=== PATIENT | male | born 1945 | race Caucasian/White ===

== ENCOUNTER 2019-09-15 10:00 | Outpatient (RCR) | payer OTHER | END 2019-10-02 | disposition still patient (30) | LOC: OT | DX: Z98.890 Other specified postprocedural states (principal) ==

== ENCOUNTER 2021-05-20 21:15 | Emergency (ER) | payer MEDICARE ==
[2021-05-20] MEDS ORDERED: CEPHALEXIN500 M1 PO (22:15)
[2021-05-20 22:23] VITALS: BP 135/84
== END 2021-05-20 22:23 | disposition home or self-care (01) ==
LOC: ED 21:15
DX: S60.451A Superficial foreign body of left index finger, initial encounter (principal); W45.8XXA Other foreign body or object entering through skin, initial encounter
CPT/HCPCS: 90714

== ENCOUNTER → 2022-10-26 | Outpatient (CLI) | payer MEDICARE ==
[~2022-10-26] MED LIST: CEPHALEXIN500 M1 PO
== END ==
LOC: RAD 15:27
DX: R50.9 Fever, unspecified (principal)

== ENCOUNTER 2024-04-27 17:28 | Inpatient (IN) | payer MEDICARE ==
[~2024-04-27] VITALS: Ht 172.7 cm; Wt 64.4 kg
--- NOTE | 2024-05-05 12:58 | NUR ---
PATIENT ARRIVED VIA TRANSPORTATION SERVICE AT 1230. PT WAS ASSISTED INTO CHAIR WITH 2 PERSON ASSIST AND WAS ABLE TO PIVOT TRANSFER WITH USE OF GAIT BELT. PT ALERT AND ORIENTED AT THIS TIME. LUCIO AT BEDSIDE UPON PATIENT ARRIVAL. PATIENT DENIES ANY PAIN AT THIS TIME.
[2024-05-05] MEDS ORDERED: NEURONTIN400 M1 PO (12:59)
[2024-05-05] MEDS ORDERED: FLOMAX0.4 MG PO (13:00)
[2024-05-05] MEDS ORDERED: DESYREL50 MG PO (13:01)
[2024-05-05] MEDS ORDERED: ARICEPT10 M1 PO (13:02)
[2024-05-05] MEDS ORDERED: OMEGA 3 1,0001 EACH PO (13:03)
[2024-05-05] MEDS ORDERED: PROZAC20 M1 PO (13:05)
[2024-05-05 13:10] VITALS: BP 86/50; BP_SYST 85
[2024-05-05] MEDS ORDERED: Acetaminophen 500 MG TAB PO PRN (13:45)
[2024-05-05] MEDS ORDERED: GABAPENTIN PO SCH (14:00)
[2024-05-05] MEDS ORDERED: Polyethylene Glycol 3350 Powder 17 GM PACKET PO PRN (15:00)
[2024-05-05 18:09] VITALS: BP 118/66
--- NOTE | 2024-05-05 18:10 | NUR ---
PT ATTEMPTED TO VOID IN URINAL BUT WAS UNSUCCESSFUL. BLADDER SCAN SHOWED READINGS OF 250, 265 AND 295. PT STATES HE DOES NOT FEEL THE URGE TO VOID AT THIS TIME.
[2024-05-05] MEDS ORDERED: Donepezil 5 MG TAB PO SCH (21:00)
[2024-05-05] MEDS ORDERED: traZODone 50 MG TAB PO SCH (21:00)
[2024-05-05] MEDS ORDERED: Omega-3 Fatty Acid Esters 1,000 MG CAP PO SCH (21:00)
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
[2024-05-06 00:59] VITALS: BP 147/72
--- NOTE | 2024-05-06 04:10 | NUR ---
2100 pt had a wet brief, changed. 2300 pt verbalized he needed to use the commode. Pt didn't void or have a BM. RN scanned pts bladder. 840mls recorded on bladder scanner. RN inserted turpin catheter, 800ml in bag shortly after placement. 0400 Output measured 1100ml.
[2024-05-06 06:37] LABS: BASO # 0.01 K/mm3 (0.02-0.10); EOS # 0.07 K/mm3 (0.04-0.40); EOS % 1.2 % (0.0-4.0); HEMATOCRIT 32.3 % (42.0-52.0); LYMPH# 1.32 K/mm3 (1.50-4.00); MEAN CELL VOLUME 95 fl (78-100); MEAN CORPUSCULAR HEMOGLOBIN 32 pg (27-31); MEAN CORPUSCULAR HGB CONC 34 g/dL (33-37); MEAN PLATELET VOLUME 9.7 fl (7.4-10.4); MONO # 0.53 K/mm3 (0.20-0.80); NEU # 3.85 K/mm3 (1.40-6.50); PLATELET COUNT 280 K/mm3 (130-400); RED BLOOD COUNT 3.41 M/mm3 (4.20-5.60); RED CELL DISTRIBUTION WIDTH 14.8 % (11.5-14.5); WHITE BLOOD COUNT 5.8 K/mm3 (4.8-10.8)
[2024-05-06 06:45] LABS: ALBUMIN 3.1 g/dL (3.4-4.8)
[2024-05-06 06:47] LABS: CALCIUM 8.8 mg/dL (8.3-10.5)
[2024-05-06 06:48] LABS: TOTAL PROTEIN 5.6 g/dL (6.2-8.1)
[2024-05-06 06:50] LABS: TOTAL BILIRUBIN 0.4 mg/dL (0.2-1.2)
[2024-05-06] MEDS ORDERED: FLUoxetine 10 MG TAB/CAP PO SCH (09:00)
--- NOTE | 2024-05-06 13:16 | NUR ---
AM SHIFT REPORT RECEIVED FROM ANDRIA SOL. PATIENT ORIENTED TO PERSON AND PLACE. LERMA WAS REPLACED OVERNIGHT DUE TO CONTINUED RETENTION. STERISTRIPS IN PLACE ON POSTERIOR CERVICAL AREA. PT HAS HAD BM TODAY. DENIES PAIN.
[2024-05-06 16:36] VITALS: BP 133/75
--- NOTE | 2024-05-06 18:56 | NUR ---
REPORT GIVEN TO ANDRIA THOMAS.
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
[2024-05-07] MEDS ORDERED: Carboxymethylcellulose PF Ophth 0.4 ML DROPPERETTE OP SCH (05:36)
[2024-05-07 06:04] VITALS: BP 126/55
--- NOTE | 2024-05-07 08:28 | NUR ---
REPORT RECEIVED FROM ANDRIA THOMAS. PT ORIENTED TO PERSON AND PLACE. ASSISTED UP TO CHAIR WITH X2 ASSIST PIVOT TRANSFER. DENIES PAIN.
[2024-05-07] MEDS ORDERED: Carboxymethylcellulose PF Ophth 0.4 ML DROPPERETTE OP PRN (13:45)
[2024-05-07 17:20] VITALS: BP 119/64
--- NOTE | 2024-05-07 22:12 | NUR ---
THIS NURSE ASSESSED PT. PT HAS NO COMPLAINTS. PT HAD A BM THIS EVENING. PT READJUSTED IN BED, HEARING AIDS PLACED IN SWIFT TENDER, PT RESTING QUIETLY IN BED, CALL LIGHT WITHIN REACH.
[2024-05-08 05:27] VITALS: BP 105/48
--- NOTE | 2024-05-08 08:30 | NUR ---
2:1 PIVOT ASSIST FROM BED TO CHAIR. WEAKNESS IN LOWER EXTREMETIES AND HAD TO USE MULTIPLE VERBAL CUES FOR PT TO MOVE LEGS. 1:1 ASSISTED FEED WITH PCT FOR BREAKFAST. PILLOW PLACED UNDER PTS LEGS TO HELP PREVENT HIM FROM SLIDING DOWN IN THE CHAIR. LERMA IN PLACE. ASSESMENT COMPLETE. MEDICATION TAKEN PO WITHOUT DIFFICULTY, ASSISTED WITH WATER CUP. NO OTHER WANTS OR NEEDS AT THIS TIME. CHAIR ALARM ON, CALL LIGHT WITHIN REACH.
[2024-05-08 16:54] VITALS: BP 132/65
--- NOTE | 2024-05-08 19:02 | NUR ---
recieved report from navid quiñones
--- NOTE | 2024-05-08 20:21 | NUR ---
pt alert and orietned, pt resting in bed. phong PCT and michael pct performed cath care and cared for pt after bowel incont. Pt states having a long day but he is in good spirits, pt cannot move left foot but pt left foot does move involuntary, pt has sensory function in all extremties. left hand carpenter foreman is also less than right. pt assessed and medications given without complication. pt now resting in bed with call light in reach and bed alarm on. pt denied any furhter needs at this time
[2024-05-09 05:40] VITALS: BP 116/61
--- NOTE | 2024-05-09 06:38 | NUR ---
report given to navid quiñones
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
[2024-05-09] MEDS ORDERED: LORazepam 0.5 MG TABLET PO PRN (15:30)
[2024-05-09 17:41] VITALS: BP 105/52
--- NOTE | 2024-05-09 18:50 | NUR ---
received report from navid quiñones
--- NOTE | 2024-05-09 22:13 | NUR ---
pt alert and oriented x4, pt resting in bed. Pt reports having a better day today and feels as though he has better control of his bowels. pt still incontinent of bowl but pt has improved. pt reports no pain at this time. pt cath care performed by abbie pierce and gucci pct. pt still has involuntary movements in LLE but cannot move LLE voluntarily. Pt assessed and medications delivered without complication. pt has no further needs at this time
[2024-05-10 05:56] VITALS: BP 134/65
--- NOTE | 2024-05-10 06:38 | NUR ---
report given to navid quiñones
--- NOTE | 2024-05-10 08:45 | NUR ---
ASSISTED PT IN SITTING UP FURTHER IN THE CHAIR. PT STATED THAT HE SLEPT BETTER LAST NIGHT THAN HE HAS SINCE HE'S BEEN HERE. STATLOCK FOR LERMA REPLACED DUE TO CLIP BEING BROKEN. ASSESMENT COMPLETE. MEDICATION TAKEN PO, PT ABLE TO USE RIGHT ARM TO HOLD WATER CUP AND DRINK IT. NO PAIN. INCISION SITE NO S/S OF INFECTION. THIS RN TO PIVOT TRANSFER PT BACK INTO BED. CALL LIGHT WITHIN REACH.
[2024-05-10 17:34] VITALS: BP 125/71
--- NOTE | 2024-05-10 19:28 | NUR ---
PT IS RESTING IN BED WITH THE TV ON. CALL LIGHT IN REACH OF PT IF ASSISTANCE IS NEEDED. PT DENIES ANY PAIN WHEN ASKED. BRACE IS ON PT ALERT AND TALKITIVE. LERMA IN PLACE AND DRAING CLEAR YELLOW URINE. pT IS ABKLE TO TAKE MEDICATIONS WITHOUT DIFFICULTIES. ENCOURAGE PT TO CALL IF ASSISTANCE IS NEEDED.
[2024-05-11 05:31] VITALS: BP 126/68
--- NOTE | 2024-05-11 06:38 | NUR ---
REPORT GIVEN TO ANGELY AYERS
--- NOTE | 2024-05-11 08:45 | NUR ---
PT IN CHAIR. NON-SLIP MAT PLACED UNDER SHEET AND CHUCKS TO HELP PREVENT PT FROM SLIDING DOWN IN THE CHAIR. CERVICAL COLLAR ON, NO S/S OF INFECTION ON INCISION SITE. NO PAIN. ASSESMENT COMPLETE. LERMA IN PLACE AND DRAINING. MEDICATION TAKEN PO WITHOUT DIFFICULTY. PCT 1:1 ASSIST WITH BREAKFAST. NO OTHER NEEDS AT THIS TIME. CALL LIGHT WITHIN REACH, CHAIR ALARM ON.
[2024-05-11 17:04] VITALS: BP 106/66
--- NOTE | 2024-05-11 20:30 | NUR ---
Patient resting in bed drinking ensure. Denies pain at this time. Alert and oriented. SCD'S on. Repositions self up in bed.
[2024-05-12 05:41] VITALS: BP 107/66
--- NOTE | 2024-05-12 05:51 | NUR ---
Patient reports he slept well this noc.
[2024-05-12 07:31] LABS: BASO # 0.01 K/mm3 (0.02-0.10); EOS # 0.12 K/mm3 (0.04-0.40); EOS % 2.3 % (0.0-4.0); HEMATOCRIT 34.5 % (42.0-52.0); HEMOGLOBIN 11.3 g/dL (13.5-18.0); LYMPH# 1.23 K/mm3 (1.50-4.00); MEAN CELL VOLUME 97 fl (78-100); MEAN CORPUSCULAR HEMOGLOBIN 32 pg (27-31); MEAN CORPUSCULAR HGB CONC 33 g/dL (33-37); MEAN PLATELET VOLUME 10.3 fl (7.4-10.4); MONO # 0.46 K/mm3 (0.20-0.80); PLATELET COUNT 186 K/mm3 (130-400); RED BLOOD COUNT 3.55 M/mm3 (4.20-5.60); RED CELL DISTRIBUTION WIDTH 14.5 % (11.5-14.5); WHITE BLOOD COUNT 5.3 K/mm3 (4.8-10.8)
[2024-05-12 07:34] LABS: ALBUMIN 3.2 g/dL (3.4-4.8)
[2024-05-12 07:35] LABS: CALCIUM 8.7 mg/dL (8.3-10.5)
[2024-05-12 07:38] LABS: TOTAL BILIRUBIN 0.4 mg/dL (0.2-1.2)
[2024-05-12 17:07] VITALS: BP 107/65
--- NOTE | 2024-05-12 19:25 | NUR ---
maintenance supervisor 2nd shift CANDY MAKER's into assist patient to bed. Patients back was down by seat seat of recliner and CNAs assisted him up in chair and then to stand and ambulate with walker from recliner to bed. Patient voiced being upset because he requested to go to bed after he ate supper and was informed by day shift CANDY MAKER that he needed to sit up for 30 minutes after his meal. Brenda AYERS into visit with patient.
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
--- NOTE | 2024-05-13 05:45 | NUR ---
Patient has been resting with eyes closed.
[2024-05-13 05:46] VITALS: BP 104/44
--- NOTE | 2024-05-13 17:00 | NUR ---
PT REPORTS THAT HE HAS HAD A GOOD DAY. PT PLEASED WITH BEING ABLE TO NAP AND MAKING IMPROVEMENTS WITH HIS ABILITY TO FEED HIMSELF. PT HAD A SHOWER THIS AM. PT ALSO FEELS PAIN IS WELL CONTROLLED. PT HAD MULTIPLE VISITORS TODAY.
[2024-05-13 18:02] VITALS: BP 146/79
--- NOTE | 2024-05-13 19:35 | NUR ---
PT RESTING IN BED WATCHING TV. DENIES PAIN WHEN ASKED. INDWELLING LERMA TO DEPENDENT DRAINAGE BAG AT BEDSIDE. PT REPORTS HAVING A "GOOD DAY " AND THAT HE HAD SEVERAL VISITORS TODAY. PT REPORTS RIGHT SIDE OF HIS BODY IS MOVING NORMALY, THE LEFT LEG IS MOVING BETTER BUT THE LEFT HAND AND ARM STILL CANT NOT MOVE ON THEIR OWN AND REQUIRES HIM TO PHYSICALY MOVE THE ARM AND OPEN THE HAND. CALL LIGHT IN REACH OF PT ENCOURAGED TO CALL IF ASSISTANCE IS NEEDED.
[2024-05-14 05:49] VITALS: BP 122/65
--- NOTE | 2024-05-14 06:45 | NUR ---
REPORT WAS GIVEN TO ANGELY AYERS
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
[2024-05-14 17:32] VITALS: BP 126/65
--- NOTE | 2024-05-14 18:52 | NUR ---
RECEIVED REPORT FROM ANDRIA AU
--- NOTE | 2024-05-14 20:00 | NUR ---
PATIENT UP TO BSC WITH 2 STAFF ASSIST. IN BED FOR ASSESSMENT. SOFT COLLAR ON PER ORDERS, INCISION TO NECK CDI STERI STRIPS PRESENT. L SIDED WEAKNESS CONTINUES. LERMA TO DD, CLEAR YELLOW URINE. NO EDEMA NOTED. CALL LIGHT IN REACH, BED ALARM ON.
--- NOTE | 2024-05-15 01:22 | NUR ---
PATIENT RESTING QUIETLY, EYES CLOSED. BREATHING UNLABORED ON RA. CALL LIGHT IN REACH, BED ALARM ON
[2024-05-15 05:39] VITALS: BP 115/59
--- NOTE | 2024-05-15 12:11 | NUR ---
PT COLLAR REMOVED AND PT UPDATED HE DOES NOT NEED TO WEAR UNLESS IT IS COMFORT. PT INCISION ON NECK IS HEALED AND STERI STRIPS REMOVED. PT INSTRUCTED NOT TO MOVE HEAD SIDE TO SIDE. HE CANNOT MOVE SIDE TO SIDE. HE DOES HAVE FOLLOW UP WITH NEUROSURGEON. HE IS FEEDING HIMSELF WITH SPECIAL FORK AND SPOON. HE ONLY PIVOTS FROM BED TO CHAIR.
--- NOTE | 2024-05-15 14:53 | NUR ---
Called neurosurgery office and they advised they would see him on June 02 at 1200. Please allow time for road construction on the streets.
--- NOTE | 2024-05-15 16:12 | NUR ---
PT IS ABLE TO AMBULATE WITH ASSISTANCE OF 2:1. HE DOES NEED TO BE REMINDED TO LOOK STRAIGHT AHEAD HE HAS TENDENCY TO LOOK AT FLOOR. HIS NECK COLLAR DOES NOT NEED TO BE ON SHOW JUMPING INSTRUCTOR. HE CAN HAVE IT ON ONLY FOR COMFORT BUT OTHER THAN THIS IT IS NOT NECESSARY. HE WAS ABLE TO HAVE BM ON TOILET TODAY AND WAS ABLE TO FEEL THAT HE WAS POOPING.
[2024-05-15 17:17] VITALS: BP 113/64
--- NOTE | 2024-05-15 17:58 | NUR ---
Pt alert and oriented when asked pain she states 10\10 and after pain medications 5\10. She has ambulated multiple times today with walker.
--- NOTE | 2024-05-15 18:50 | NUR ---
Pt is able to ambulate from chair to bed with walker. He can feel when he passes gas. He is cooperative with care.
--- NOTE | 2024-05-15 19:05 | NUR ---
pt incision on neck is healed and steri strips removed. Pt does have follow up on 06/02/2024. up dated on plan of care and goal is to get turpin out tomarrow.
[2024-05-16 05:30] VITALS: BP 112/65
--- NOTE | 2024-05-16 08:46 | NUR ---
REPORT RECEIEVED THIS AM FROM ANDRIA SU. PT ALERT AND ORIENTED UPON MY ARRIVAL. PT DENIES ANY PAIN. SURGICAL INCISION IS HEALED, EDGES WELL APPROXIMATED AND IS OPEN TO AIR. PATIENT'S LEFT HAND CONTRACTED AND UNABLE TO ELECTRONIC SCALE SUBASSEMBLER, BUT DOES HAVE WEAK ELECTRONIC SCALE SUBASSEMBLER TO RIGHT HAND. SCABBED ABRASION BEHIND LEFT EAR. WILL DO BLADDER TRAINING TODAY TO ATTEMPT TO REMOVE LERMA.
[2024-05-16 17:17] VITALS: BP 114/62
--- NOTE | 2024-05-16 18:09 | NUR ---
PT STARTED BLADDER TRAINING TODAY. LERMA WAS CLAMPED AT 0840, PT NEVER FELT URGE TO VOID. AT 1100 LERMA WAS UNCLAMPED AND URINE IMMEDIATELY DRAINED. 1225 LERMA RE-CLAMPED, PT HAD URGE TO VOID AT 1350 AND TUBING WAS UNCLAMPED. 1630 TUBING CLAMPED AND 1800 PT FELT URGE TO VOID SO TUBING WAS UNCLAMPED.
[2024-05-17 05:33] VITALS: BP 109/67
[2024-05-17 06:09] LABS: BASO # 0.02 K/mm3 (0.02-0.10); EOS # 0.18 K/mm3 (0.04-0.40); EOS % 3.8 % (0.0-4.0); HEMATOCRIT 35.7 % (42.0-52.0); HEMOGLOBIN 11.4 g/dL (13.5-18.0); LYMPH# 1.69 K/mm3 (1.50-4.00); MEAN CELL VOLUME 99 fl (78-100); MEAN CORPUSCULAR HEMOGLOBIN 32 pg (27-31); MEAN CORPUSCULAR HGB CONC 32 g/dL (33-37); MEAN PLATELET VOLUME 10.5 fl (7.4-10.4); MONO # 0.47 K/mm3 (0.20-0.80); NEU # 2.37 K/mm3 (1.40-6.50); PLATELET COUNT 264 K/mm3 (130-400); RED BLOOD COUNT 3.62 M/mm3 (4.20-5.60); RED CELL DISTRIBUTION WIDTH 14.1 % (11.5-14.5); WHITE BLOOD COUNT 4.7 K/mm3 (4.8-10.8)
[2024-05-17 06:15] LABS: ALBUMIN 3.2 g/dL (3.4-4.8)
[2024-05-17 06:20] LABS: TOTAL BILIRUBIN 0.3 mg/dL (0.2-1.2)
--- NOTE | 2024-05-17 10:50 | NUR ---
SPOKE WITH ANDRIA DOZIER AT NEURO SURGERY, PT TO REMAIN IN CERVIAL COLLAR FOR 3 MONTHS AFTER SURGERY (END DATE OF 07/21/24). OKAY TO REMOVE COLLAR WITH SPINAL STABILIZATION FOR HYGIENE. PT HAS AN APPOINTMENT May TO ASSESS FROM THERE.
--- NOTE | 2024-05-17 12:30 | NUR ---
Catheter clamped approx 0830. Pt denies urge to urinate. Notified provider. Catheter d/c per verbal instruction. Cleansed cortez-area after removed. Supply pt with urinal, instruct to use upon urge and/or call for assist. Pt acknowledges understanding. Assist to stand/pivot back into bed per pt request.
--- NOTE | 2024-05-17 16:10 | NUR ---
Pt unable to void after catheter removal. Reports having urge, assist to stand at bedside, bladder scan 400ml. Per provider order, straight cath x 1, 375ml out. Instruct pt to continue fluid intake and notify staff of urge to urinate. Pt up to shower with staff. Pt had BM. Is able to alert staff of need to BM.
[2024-05-17 18:01] VITALS: BP 105/69
--- NOTE | 2024-05-17 21:17 | NUR ---
pt continues complaining of needing to urinate but being unable, pt was bladder scaned, scanner showed a pissibility of about 638ml in blader. as per orders this rn straight cathed the pt and got a total of 700ml of urine out. pt stated feeling better. pt left in bed alarmed at lowest position and with call light in reach after being clead up.
[2024-05-18 05:45] VITALS: BP 127/62
[2024-05-18 08:28] LABS: URINE APPEARANCE CLOUDY (CLEAR); URINE BILIRUBIN NEGATIVE (NEGATIVE); URINE COLOR YELLOW (YELLOW); URINE GLUCOSE NEGATIVE (NEGATIVE); URINE KETONE NEGATIVE (NEGATIVE); URINE PROTEIN(semi-quant) NEGATIVE (NEGATIVE)
[2024-05-18 08:29] LABS: URINE BLOOD NEGATIVE (NEGATIVE); URINE LEUKOCYTE ESTERASE 1+ (NEGATIVE); URINE NITRATE NEGATIVE (NEGATIVE)
[2024-05-18 08:30] LABS: URINE WBC 16-30 /hpf (0-3)
--- NOTE | 2024-05-18 08:45 | NUR ---
PT RESTING IN BED UPON ENTERING THE ROOM. STRAIGHT CATH PREFORMED TO OBTAIN UA, PT HANDLED WELL. PT EXPRESSED HIS FRUSTRATIONS WITH "ALL OF HIS PROBLEMS" INCLUDING NOT BEING ABLE TO URINATE AND THE LOSS OF MOTOR FUNCTION IN HIS RIGHT EXTREMETIES. ASSESMENT COMPLETE. MEDICATION TAKEN PO. 2:1 TRANSFER WITH WALKER TO THE CHAIR FOR BREAKFAST. NO OTHER WANTS/NEEDS AT THIS TIME. CHAIR ALARM ON, CALL LIGHT WITHIN REACH.
[2024-05-18] MEDS ORDERED: Cephalexin 500 MG CAP PO SCH (09:23)
--- NOTE | 2024-05-18 13:00 | NUR ---
PT FEELS THE URGE TO HAVE TO URINATE, BUT SAYS "I JUST CANT GO PEE". BLADDER SCAN SHOWED 600 MLS, STRAIGHT CATH PERFORMED AND 600 MLS DRAINED. PT HANDLED WELL.
[2024-05-18 15:21] VITALS: BP 123/76
[2024-05-19 06:02] VITALS: BP 116/70
[2024-05-19 17:43] VITALS: BP 113/69
--- NOTE | 2024-05-19 20:20 | NUR ---
PT LAYING IN BED WHEN NURSE ENTERS ROOM. PT TAKEN MEDICATION WITHOUT ANY PROBLEM, DENIES PAIN WHEN ASKED. PT STATES HE IS CONCERNED ABOUT HIS "TWITCHING" LEGS AND FEET EXPLAINED TO PT THAT THE TWITCHING FEELING MIGHT BE FROM NERVE DAMAGE. PT DENIED ANY OTHER NEEDS WHEN ASKED. INDWELING LERMA IN PLACE TO DEPENDENT DRAINAGE BAG, CLEAR YELLOW URINE IN DRAINE TUBE. CALL LIGHT IN REACH OF PT.
[2024-05-20 06:06] VITALS: BP 112/61
--- NOTE | 2024-05-20 06:49 | NUR ---
REPORT GIVEN TO MARYLIN AYERS
--- NOTE | 2024-05-20 08:00 | NUR ---
AM REPORT RECEIVED FROM ANDRIA LYON. PATIENT ALERT AND ORIENTED. ASSISTED UP TO CHAIR WITH 2 PERSON ASSISTANCE. PT STILL LACKS BOX TOE STITCHER STRENGTH TO LEFT HAND BUT RIGHT HAND IS ABLE TO BOX TOE STITCHER. DENIES PAIN.
[2024-05-20 17:30] VITALS: BP 127/64
--- NOTE | 2024-05-20 18:43 | NUR ---
REPORT GIVEN TO STEVIE LOWERY
--- NOTE | 2024-05-20 19:02 | NUR ---
Report received from Khushbu AYERS. Patient transferred from recliner to bed via 2:1 staff, C-collar in place. Pivot transfer with walker, tolerated well. Positioned for comfort with bed alarm on. Call light in reach. A/O. Relys on white board to state correct, date and year. Forgetful and often repeats self. Denies pain. States legs are "jumpy" "because they made me sit up in that chair". Assessment completed. Dressing to coccyx CDI. Encouraged to rotate to sides and off load buttocks/coccyx. SCD's applied. Ensure supplement provided.
--- NOTE | 2024-05-21 03:15 | NUR ---
Rings call light and states having neck pain and feet aches. Tylenol provided. Patient argumentative with staff. States "I don't need this thing on my neck." Explained to patient that neuro surgeon in [place] states it has to be on. Patient states "your going to do what some asshole in [place] tells you". You people are medical and you should fix me." Unable to educate patient at all, he becomes angry and states "just get out of here" "you are human aren't you, but you want to do what some asshole in an office tells you to do.". Jesús RN in to speak with patient.
--- NOTE | 2024-05-21 03:47 | NUR ---
pt began getting frustrated with Sharee BUTADIENE CONVERTER OPERATOR, this nurse went to pt room to assist Sharee BUTADIENE CONVERTER OPERATOR, pt frustrated with staff for following neurology wishes to continue with pt neck brace. Pt states "you dont care about me getting better otherwise you would listen to me and take this damn thing off". Many attempts made by this nurse to educate pt on the safety reasons for utilizing the brace and the potential consequences of removing a neck brace prior to proper healing. pt additionally frustrated about spending time in the chair during the day stating "that f'ing chair doesnt do anything for me" this nurse attempted to educate on the importance of changing position for skin breakdown prevention. at the end of the discussion pt still confused and frustrated with neck brace but was more calm and willing to attempt to get some rest. pt in bed with call light in reach and bed alarm on
--- NOTE | 2024-05-21 04:09 | NUR ---
Rests with eyes closed, no signs of pain/distress. Bed alarm on. Call light in reach.
[2024-05-21 06:02] VITALS: BP 118/57
--- NOTE | 2024-05-21 06:46 | NUR ---
Report to Khushbu AYERS.
[2024-05-21] MEDS ORDERED: Nitrofurantoin (Mono/Macro) 100 MG CAPSULE PO SCH (08:00)
--- NOTE | 2024-05-21 08:15 | NUR ---
PATIENT VERY UPSET THIS MORNING STATING "NOBODY WANTS TO HELP OR DO ANYTHING FOR ME". WHEN THIS RN ASKED FOR CLARIFICATION PT STATED THAT "NOBODY WANTS TO MAKE ANY DECISIONS ABOUT THIS THING ON MY NECK". PT REFERRING TO SOFT COLLAR AND WAS EDUCATED ON THE IMPORTANCE OF LEAVING IT ON PER HIS NEURO DOCTOR. PT VERY DEFENSIVE AND NOT LISTENING TO RATIONALE. PT VERY ARGUMENATIVE ABOUT MANY DIFFERENT THINGS AND THIS RN TRIED EDUCATING PATIENT BUT PT NOT VERY RECEPTIVE TO TEACHING. THIS RN TOLD PATIENT I WAS GOING TO LEAVE THE ROOM FOR A WHILE TO GIVE PT TIME TO COOL DOWN. AFTER ABOUT 15 MINUTES I RETURNED AND PATIENT MUCH LESS ARGUMENATIVE AND DEFENSIVE AND AGREEABLE TO GET UP INTO CHAIR FOR BREAKFAST.
[2024-05-21 17:12] VITALS: BP 118/65
--- NOTE | 2024-05-21 18:10 | NUR ---
PT MUCH MORE AGREEABLE TO CARE DAY PROGRESSED. PT HAD REQUESTED COLLAR BE TAKEN OFF LONG ENOUGH FOR TO PUT LOTION ON HIS SCAR BECAUSE IT WAS ITCHING. AGREED THAT THIS WAS OKAY AND COLLAR WAS PLACED BACK ON RIGHT AFTER. PT AMBULATED FROM BED TO CHAIR FOR MEALS AND AMBULATED BACK TO BED, BOTH WITH 2 PERSON ASSISTANCE.
--- NOTE | 2024-05-21 18:42 | NUR ---
REPORT GIVEN TO STEVIE LOWERY.
--- NOTE | 2024-05-21 19:11 | NUR ---
Report received from Khushbu AYERS. Patient resting supine in bed with eyes closed. Neck brace in place. Respirations even and non-labored. Bed alarm on. Call light in reach.
--- NOTE | 2024-05-21 20:05 | NUR ---
Awake, talkative and cooperative. Neck brace in place. States "I slept well last night". Denies pain. Assessment completed. Refused SCD's. Xangati patent to DD with clear yellow urine in bag. [place]ley ensure provided. Pills taken whole without difficulty. Bed alarm on. Call light in reach.
--- NOTE | 2024-05-22 03:39 | NUR ---
Patient has been sleeping soundly this night. No signs of pain/distress. Mon patent to DD with clear yellow urine in the bag. Bed alarm on. Call light in reach.
--- NOTE | 2024-05-22 05:08 | NUR ---
Awake and in a good mood, jokes with staff. Mepilex to coccyx changed. Area healed over with no open area noted. Mepilex for protection.
[2024-05-22 05:34] VITALS: BP 107/63
--- NOTE | 2024-05-22 06:57 | NUR ---
Report to Natacha AYERS.
--- NOTE | 2024-05-22 16:51 | NUR ---
Referral sent to [facility]
[2024-05-22 17:00] VITALS: BP 110/62
--- NOTE | 2024-05-22 19:20 | NUR ---
Report received from Natacha AYERS. Patient resting supine in bed watching TV. A/O x4 using the white board as reference to place, Month and year. Forgetful and repeats self often. Patient in good mood and cooperative with cares. Does mention how nobody helps him here except theraphy but he is not argumenative and upset at this time. Statements made in more of a joking like manner. Soft collar neck brace in place. Denies pain. States his legs were "jumping" earlier but now how settled down. "it's from making me sit in that chair, which doesn't help me at all". Assessment completed. Mon patent to DD with clear yellow urine noted in bag. SCD's in place to BLE. Bed alarm on. Call light in reach.
--- NOTE | 2024-05-22 20:00 | NUR ---
HS medications taken whole without difficulty. Placed in a gown and cath care provided. Dressing to coccyx CDI. Bed alarm on. Call light in reach.
--- NOTE | 2024-05-23 00:06 | NUR ---
Sleeps soundly. Respirations even and non-labored, no signs of pain/distress. Bed alarm on. Call light in reach. SCD's in place.
[2024-05-23 06:02] VITALS: BP 116/69
--- NOTE | 2024-05-23 06:09 | NUR ---
Slept well all night. Awake this AM. Denies pain. Soft collar in place. Continues to talk about "nobody is helping me, except those ladies downstairs". "all the nurses want to do is have me sit in the chair". Allowed patient to vent. Denies wants or needs. Continues to rest with bed alarm on. Call light in reach.
--- NOTE | 2024-05-23 07:10 | NUR ---
Report to Brenda AYERS.
--- NOTE | 2024-05-23 16:00 | NUR ---
PT CONTINUES TO WORK WITH PT/OT. STAFF REPORTS LABILE MOOD. PT AGITATED WITH TURNER AND FORMER AUTOMATIC FOR NOT NOTICING HIS THICK DANDRUFF. COMBING PATIENTS HAIR AND PICKING SKIN OFF OF HIS SCALP. PT MAD THAT STAFF DID NOT NOTICE THIS AND DO SO HIS DIDNT HAVE TO. PT CONTINUED TO COMPLAIN THAT STAFF DOESNT KNOW WHAT THEY ARE DOING. PT REFUSES TO ASK FOR HELP SAYING HE HAS NEVER BEEN IN THE HOSPITAL AND DOESNT KNOW HOW TO ACT OR WHAT TO ASK FOR. ATTEMPTED TO HAVE A CONVERSATION TO DE[place]TE PATIENT AND COME UP WITH A SOLUTION. UNABLE TO REASON WITH PATIENT. FAMILY IN ROOM ATTEMPTING TO CALM HIM DOWN. TURNER AND FORMER AUTOMATIC LEFT ROOM TO ALLOW PATIENT TO CALM DOWN.
[2024-05-23 17:23] VITALS: BP 114/66
[2024-05-24 05:49] LABS: BASO # 0.01 K/mm3 (0.02-0.10); EOS # 0.13 K/mm3 (0.04-0.40); EOS % 2.9 % (0.0-4.0); HEMATOCRIT 36.6 % (42.0-52.0); HEMOGLOBIN 11.8 g/dL (13.5-18.0); LYMPH# 1.61 K/mm3 (1.50-4.00); MEAN CELL VOLUME 98 fl (78-100); MEAN CORPUSCULAR HEMOGLOBIN 32 pg (27-31); MEAN CORPUSCULAR HGB CONC 32 g/dL (33-37); MEAN PLATELET VOLUME 10.6 fl (7.4-10.4); MONO # 0.44 K/mm3 (0.20-0.80); NEU # 2.27 K/mm3 (1.40-6.50); PLATELET COUNT 326 K/mm3 (130-400); RED BLOOD COUNT 3.75 M/mm3 (4.20-5.60); RED CELL DISTRIBUTION WIDTH 13.5 % (11.5-14.5); WHITE BLOOD COUNT 4.5 K/mm3 (4.8-10.8)
[2024-05-24 05:59] LABS: CALCIUM 8.9 mg/dL (8.3-10.5)
[2024-05-24 06:05] VITALS: BP 103/61
--- NOTE | 2024-05-24 08:00 | NUR ---
Pt up to recliner for breakfast. Denies pain. Pt Ox4 but forgetful, repeats self often. Soft collar in place to neck. Mon catheter intact with pale yellow urine to dependant drainage. Pt able to swallow pills whole with water. Controls water pitcher under own power after set up. Put down footrest, pt able to adjust self in recliner without assist. Set up breakfast tray, applied utensil modifiers, placed straws, cut food. Pt able to feed/drink self.
--- NOTE | 2024-05-24 13:30 | NUR ---
Pt up to BR with therapy. Pt reported feeling urge to have BM. Was able to ambulate into BR. Had incontinent/continent stool.
[2024-05-24 17:01] VITALS: BP 121/64
--- NOTE | 2024-05-24 19:30 | NUR ---
Report from ANDRIA Landry Patient resting in bed. Oriented to person, place, and situation. RA. No pain at this time. HS meds given. Bed alarm, call light within reach. Patient denies any other needs at this time.
[2024-05-25 05:55] VITALS: BP 112/58
--- NOTE | 2024-05-25 08:13 | NUR ---
AM REPORT RECEIVED FROM ANDRIA LOPEZ. PT IS ALERT AND ORIENTED AT THIS TIME. UP IN CHAIR UPON MY ARRIVAL. DENIES ANY PAIN.
[2024-05-25 17:09] VITALS: BP 115/64
--- NOTE | 2024-05-25 18:47 | NUR ---
REPORT GIVEN TO STEVIE LOWERY
--- NOTE | 2024-05-25 19:28 | NUR ---
Report received from Khushbu AYERS. Patient resting supine in bed drinking Ensure supplement. LABORER CUTTING TOOL in to provide cath cares and change into a gown. A/O x4. Joking with LABORER CUTTING TOOL. Denies pain. Assessment completed. Mon patent to DD with clear yellow urine in bag. Positioned for comfort. Bed alarm on. Call light in reach.
--- NOTE | 2024-05-26 03:12 | NUR ---
Patient has been resting quietly. Respirations even and non-labored. No signs of pain, or distress. Mon patent to DD with clear yellow urine in bag. Bed alarm on. Call light in reach.
[2024-05-26 05:47] VITALS: BP 117/71
--- NOTE | 2024-05-26 06:52 | NUR ---
Report to Joshua AYERS.
--- NOTE | 2024-05-26 08:30 | NUR ---
PT IN CHAIR FOR BREAKFAST. C-COLLAR IN PLACE. DENIES ANY PAIN. ASSESMENT COMPLETE. MEDICATION TAKEN PO WITHOUT DIFFICULTY. LERMA INTACT AND DRAINING. PT STATED THAT HE SLEPT WELL LAST NIGHT. PT 2 ASSIST BACK TO BED. NO OTHER WANTS OR NEEDS AT THIS TIME. CALL LIGHT WITHIN REACH, BED ALARM ON.
[2024-05-26 18:13] VITALS: BP 114/67
--- NOTE | 2024-05-26 18:39 | NUR ---
QUESTIONS THAT PT HAD, THIS RN TO GO OVER THEM AND ANSWER THEM. . AT THIS TIME, NO FURTHER QUESTIONS OR CONCERNS.
--- NOTE | 2024-05-26 19:05 | NUR ---
Report recived from Joshua AYERS
--- NOTE | 2024-05-26 20:10 | NUR ---
PT LAYING IN BED WITH THE TV ON. PT DENIES PAIN WHEN ASKED. TAKES MEDICATION WITH OUT DIFFICULTIES. PT REPORTS HOW WELL HE IS DOING WITH THERAPY. PT TALKS ABOUT VISITORS THAT HE HAD TODAY AND THE HE GOT A NAP AFTER THEY LEFT. PT INCISION ON POSTERIOR NECK HEALING WITH NO SIGNS OF INFECTIONS.
[2024-05-27 06:07] VITALS: BP 117/63
--- NOTE | 2024-05-27 06:42 | NUR ---
REPORT WAS GIVEN TO ANGELY AYERS.
--- NOTE | 2024-05-27 08:00 | NUR ---
PT THIS AM WAS EXPRESSING HIS FRUSTRATIONS WITH THE STAFF AND HOSPITAL. PT STATED "WHY DOES NO ONE COME IN MY ROOM AND TALK TO ME". PT WAS ALSO BEING RUDE TO THE PCT SAYING "SHE DOESNT KNOW WHAT SHES DOING OR KNOWS ANYTHING." VERBALIZED TO PT THAT IT IS NOT OKAY TO TREAT STAFF LIKE THAT. 2:1 ASSIST TO CHAIR. LERMA IN PLACE DRAINING. C-COLLAR ON. MEDICATION TAKEN PO. ASSESMENT COMPLETE. NO OTHER WANTS OR NEEDS AT THIS TIME. CALL LIGHT WITHIN REACH, CHAIR ALARM ON.
[2024-05-27 17:21] VITALS: BP 110/57
--- NOTE | 2024-05-27 19:00 | NUR ---
RECEIVED REPORT FROM ANDRIA AU
--- NOTE | 2024-05-27 20:00 | NUR ---
RESTING IN BED STATING THAT HE HAS NOT BEEN ABLE TO SLEEP. C-COLLAR IN PLACE. LERMA TO DD, URINE IS CLOUDY. PATIENT DENIES PAIN. PLEASANT WITH STAFF THIS EVENING. ADVISED PATIENT THAT HE IS GETTING A SLEEP AID WITH EVENING MEDS. CALL LIGHT IN REACH, BED ALARM ON.
--- NOTE | 2024-05-28 05:27 | NUR ---
RESTING QUIETLY IN BED, C-COLLAR IN PLACE, FLORENTIN ORDAZ DD. CALL LIGHT IN REACH, BED ALARM ON
[2024-05-28 05:54] VITALS: BP 104/56
--- NOTE | 2024-05-28 10:26 | NUR ---
PT IN BED UPON ENTERING ROOM. 2:1 ASSIST WITH THE WALKER TO CHAIR. LERMA IN PLACE AND DRAINING. PT STATES THAT HE SLEPT BETTER LAST NIGHT THAN HE DID THE PREVIOUS DAYS. DENIES ANY PAIN. ASSESMENT COMPLETE. MEDICATION TAKEN PO. NO OTHER WANTS OR NEEDS AT THIS TIME. CALL LIGHT WITHIN REACH, CHAIR ALARM ON. C-COLLAR ON.
[2024-05-28 15:49] VITALS: BP 122/65
--- NOTE | 2024-05-28 15:54 | NUR ---
UPON ENTERING ROOM, PT WAS LAYING IN BED WITHOUT HIS C-COLLAR ON WHILE HIS WAS APPLYING LOTION ON HIS LEGS. THIS RN EXPLAINED TO HIM THE IMPORTANCE OF LEAVING HIS C-COLLAR ON AND ONLY TAKING IT OFF FOR HYGIENE AND MAINTAINING C-SPINE.
--- NOTE | 2024-05-28 18:56 | NUR ---
RECEIVED REPORT FROM ANDRIA AU
--- NOTE | 2024-05-28 20:00 | NUR ---
PATIENT ALERT AND ORIENTED TO PERSON AND PLACE, THOUGH HE USES WHITE BOARD TO ANSWER QUESTIONS. EENT CLEAR. BREATHING UNLABORED ON RA. C-COLLAR IN PLACE. INC TO NECK CDI. DENIES PAIN OR DISCOMFORT AT THIS TIME. LERMA TO DD WITH CLOUDY URINE PRESENT. CALL LIGHT IN REACH, BED ALARM ON.
--- NOTE | 2024-05-29 05:39 | NUR ---
PATIENT RESTING IN BED. STAFF IN TO REPOSITION AND DO CATH CARE. PATIENT ANGRY AND RUDE WITH STAFF STATING THAT NO ONE HAS WORKED WITH HIM. STATING THAT STAFF IS "WORTHLESS" AND TOLD STAFF TO "GET THE F*CK OUT OF HERE". STAFF COMPLETED TASKS AND EXITED ROOM. CALL LIGHT IN REACH AND BED ALARM ON. C-COLLAR IN PLACE.
[2024-05-29 06:12] VITALS: BP 115/60
--- NOTE | 2024-05-29 10:50 | NUR ---
[facility] in [place], [place] has denied the referral. 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
--- NOTE | 2024-05-29 12:49 | NUR ---
Referral sent to Terrie Briscoe will meet with Rebecca between 1:00 and 1:30 with ,
[2024-05-29 17:12] VITALS: BP 127/63
--- NOTE | 2024-05-29 18:50 | NUR ---
Recived report from Susie AYERS.
--- NOTE | 2024-05-29 20:50 | NUR ---
PT RESTING IN BED WITH EYES CLOSED. WHEN NURSE ENTERS ROOM PT OPENS EYES AND ANSWERS NURSES QUESTIONS. SOFT NECK COLLAR CONTINUES TO BE WORN BY PT. PT DENIES PAIN WHEN ASKED. PT DOES REPORT THAT HE IS WORRIED ABUT SLEEPING TONIGHT, REASURED PT THAT THERE IS A A MEDICATION THAT SHOULD HELP HIM SLEEP. CALL LIGHT IN REACH OF PT, HE IS ENCOURAGED TO CALL IF ASSISTANCE IS NEEDED.
[2024-05-30 06:04] VITALS: BP 116/70
--- NOTE | 2024-05-30 06:47 | NUR ---
Report given to Susie AYERS.
--- NOTE | 2024-05-30 10:01 | NUR ---
PATIENT HAD LITTLE URINE IN LERMA BAG AND WHEN HE STOOD UP TO GET BACK INTO BED AFTER BREAKFAST, HIS BRIEF WAS WET. PROVIDER NOTIFIED AND GAVE ORDERS TO DISCONTINUE LERMA AT THIS TIME AND ATTEMPT BADDER TRAINING. BLADDER WAS SCANNED AND THERE WAS 380CC. LERMA WAS REMOVED AND BLOOD TINGED URINE TRICKLED OUT. PATIENT WAS ASSISTED TO EDGE OF BED AND INTO A STANDING POSITION. HE WAS ABLE TO HOLD URINAL WHILE STAFF X2 HELPED STABALIZE HIM. HE WAS ABLE TO VOID 150CC AT THAT TIME. STAFF WILL CONT TO ASSIST Q2HRS WITH VOIDING AND REMINDED PATIENT THAT IF HE FELT THE URGE, TO CALL STAFF WELL. PATIENT IS RESTING IN BED BEFORE HIS THERAPY APPT.
[2024-05-30 17:33] VITALS: BP 114/66
--- NOTE | 2024-05-30 18:22 | NUR ---
PT CALLED FOOD CHECKERS AND CASHIERS SUPERVISOR INTO HIS ROOM AT 1800 BECAUSE HIS LEG STARTED TO SHAKE AND HE DIDNT KNOW HOW TO GET THEM STOPPED. 3 BLANKETS PLACED ON HIS LEGS TO HELP WITH THE SHAKING. PT REPORTS THAT HE DOESNT KNOW IF HIS LEGS ARE COLD AND "I GETTING PISSED BECAUSE I CANT STOP THEM." FOOD CHECKERS AND CASHIERS SUPERVISOR ATTEMPTED TO TALK TO PATIENT REGARDING SPINAL CORD INJURIES BUT HE WAS NOT ABLE TO CALM DOWN ENOUGH TO HAVE A CONVERSATION. WHEN PATIENT GETS AGITATED OR ANGRY HE CANNOT BE REASONED WITH AND ACCUSES STAFF OF NOT TAKING CARE OF HIM. PT ACCUSES STAFF OF NOT KNOWING WHAT THEY ARE DOING. CALL LIGHT WITH IN REACH. SR UP. PATIENT SAFELY IN BED. FOOD CHECKERS AND CASHIERS SUPERVISOR TURNED TO WALK OUT OF ROOM AND PATIENT STATES "GET OUT OF MU FUCKING ROOM YOU UGLY BITCH". ADMIN NOTIFIED OF BEHAVIORS.
--- NOTE | 2024-05-30 18:36 | NUR ---
PATIENT YELLING AND VERY DEMINING TOWARDS STAFF AND ACCUSING STAFF OF NOT HELPING HIM GET WELL. HE REPEATEDLY ASKED WHY HIS LEGS WERE SHAKING, BUT EVERY TIME THIS NURSE WOULD TRY AND RESPOND, PATIENT WOULD BEGIN TALKING OVER NURSE. HE QUICKLY STARTING CURSING AND MOCKING STAFF WHEN THEY SPOKE. STAFF INFORMED PATIENT THAT IF HE CONTINUED TO CURSE AND YELL AT STAFF, NURSE WOULD MAKE SURE HE WAS SAFE AND LEAVE ROOM. NURSE MADE SURE CALL LIGHT WAS IN REACH, BED LOWERED TO LOWEST POSITION AND LEFT ROOM. HE CONTINUED MOCKING AND YELLING AT STAFF.
--- NOTE | 2024-05-30 20:00 | NUR ---
Report received from Gianna AYERS. This nurse and MEDICAL OFFICE ASST to room. Ensure drink offered and accepted. Cooperative with cares and shift assessment. A/O x4. Forgetful, denies pain. HS medications taken whole without difficulty. Assessment completed. C-collar in place. SCD's in place. Denies wants or needs. Denies need to void. Denies wants or needs at this time. Bed alarm on. Call light in reach.
--- NOTE | 2024-05-30 21:28 | NUR ---
Calls to void. Stands up beside bed with assist of TRIM CARPENTER and voids 375 ML of foul smelling, cloudy urine. Assisted back to bed. Post void bladder scan completed and noted to have 267 ML of urine post void.
--- NOTE | 2024-05-31 04:27 | NUR ---
Calls for assist. ARTERIAL EMBALMER in to assist. Stands up on EOB did not void. Sat back down and then peed in bed, attempted to stand back up, peed on floor with ARTERIAL EMBALMER trying to hold him up, unsteady. Assisted back into bed by ARTERIAL EMBALMER. Uncooperative with cares and not listening to ARTERIAL EMBALMER while she is attempting to help steady patient and get something to catch urine.
[2024-05-31 05:34] VITALS: BP 119/69
[2024-05-31 06:07] LABS: BASO # 0.01 K/mm3 (0.02-0.10); EOS # 0.04 K/mm3 (0.04-0.40); EOS % 0.5 % (0.0-4.0); HEMATOCRIT 38.7 % (42.0-52.0); HEMOGLOBIN 12.2 g/dL (13.5-18.0); MEAN CELL VOLUME 98 fl (78-100); MEAN CORPUSCULAR HEMOGLOBIN 31 pg (27-31); MEAN CORPUSCULAR HGB CONC 32 g/dL (33-37); MEAN PLATELET VOLUME 11.3 fl (7.4-10.4); NEU # 5.32 K/mm3 (1.40-6.50); PLATELET COUNT 204 K/mm3 (130-400); RED BLOOD COUNT 3.95 M/mm3 (4.20-5.60); RED CELL DISTRIBUTION WIDTH 13.8 % (11.5-14.5); WHITE BLOOD COUNT 7.3 K/mm3 (4.8-10.8)
[2024-05-31 06:17] LABS: ALBUMIN 3.2 g/dL (3.4-4.8)
[2024-05-31 06:18] LABS: CALCIUM 8.8 mg/dL (8.3-10.5)
[2024-05-31 06:19] LABS: TOTAL PROTEIN 6.1 g/dL (6.2-8.1)
[2024-05-31 06:21] LABS: TOTAL BILIRUBIN 0.4 mg/dL (0.2-1.2)
--- NOTE | 2024-05-31 07:01 | NUR ---
Report to Wave RN
--- NOTE | 2024-05-31 08:15 | NUR ---
[facility] WILL BE HERE TOMORROW AT 0900 TO COMPLETE CARE ASSESSMENT
--- NOTE | 2024-05-31 10:08 | NUR ---
PT UP TODAY AT 0700 PT HAD A LARGE BM. PT REQUIRES 2-1 TRANSFER MAX ASSIST. PTS LEFT LEG BECOMES UNSTEADY, WHEN THIS HAPPENS PT BECOMES PANICKED, BRING THE WALKER CLOSER TO HIM HELPS IN THIS SITUATION. PT TRANSFERRED FROM BATHROOM TO RECLINER TO EAT BREAKFAST. PT ATE BREAKFAST AND RETURNED TO BED 30-40 MIN AFTER EATING. PT HAD A VISITOR FROM [employer], SHE LEFT AT 1000.
--- NOTE | 2024-05-31 14:58 | NUR ---
Faxed Request for Service at [facility]. [phone]
[2024-05-31 17:08] VITALS: BP 101/56
--- NOTE | 2024-05-31 17:18 | NUR ---
PTS VISITED AND AN OLD FRIEND VISITED TODAY WELL. PT HAS HAD A POSITIVE OUTLOOK TODAY. PT VOIDED EVERY 4 HOURS 300ML TO 500ML EACH TIME. PTS URINE IS YELLOW BUT CLOUDY. PT DENIES THE URGE TO URINATE, HE REPORTS NEEDING TO HAVE A BM DESPITE HAVING A LARGE BM TODAY. NO BLADDER SCANS TODAY.
--- NOTE | 2024-05-31 18:55 | NUR ---
Report received from Angelia AYERS. Patient resting supine in bed with eyes closed. No signs of pain/distress. Bed alarm on. Call light in reach.
--- NOTE | 2024-05-31 20:00 | NUR ---
CARD RUNNER in to room to take patient his Ensure. Patient aggitated and states that "no one has come in to take him to the bathroom and he has to pee". Patient has been using call light up to this point when he has to urinate. Yelling and talking over staff, states "no one has been helping me" You girls don't do anything for me". Assisted OOB with 2:1 staff and ambulates to BR. While in BR patient, CARD RUNNER standing in front of patient who was sitting on the toilet trying to reason with patient who was yelling. Patient took his hand and placed it on CARD RUNNER's check and pushed it to the side. CARD RUNNER back up and said "whoa". Patinet proceeded to yell and curse, stating "don't touch you" "I can touch you if I want to touch you". CARD RUNNER stepped out of bathroom to allow patient to calm down, staying in room and able to visualize patient on toilet. Patient allowed to sit on toilet for elimination. Patient unable to void at this time. This nurse to room, patient more calm now. This nurse asked patient if he would like to stand up and try to urinate. Patient agreeable. CARD RUNNER's back in BR to assist. Patient cooperative. Unable to void. Ambulated back to bed with 2:1 assist. Unsteady gait. Bladder scan performed and noted to have >600 ML of urine in bladder. Staff will allow patient time to settle completely down and attempt having patient try and void again before considering catherization. HS medications taken whole at this time without difficulty. Denies wants or needs, just states he does not understand why he cannot pee.
--- NOTE | 2024-05-31 20:45 | NUR ---
Dr. Howell aware of unable to void and bladder scan results. Orders received.
[2024-05-31] MEDS ORDERED: QUEtiapine 25 MG TAB PO SCH (21:00)
[2024-05-31] MEDS ORDERED: Cyclobenzaprine 10 MG TAB PO SCH (21:00)
--- NOTE | 2024-05-31 21:07 | NUR ---
SENIOR VICE PRESIDENT AND CHIEF INFORMATION OFFICER's in room to help patient attempt to void. Stood up on side of bed. Unable to void. Assisted back to bed. Bladder scan 555
--- NOTE | 2024-05-31 21:39 | NUR ---
St. Cath performed via steril technique with 14 fr red anaid cath. Tolerated well. 850 ML of cloudy yellow urine with sedimet obtained. Patient verbalizes relief.
--- NOTE | 2024-06-01 03:03 | NUR ---
Calls for assist to void. Unable. Bladder scan performed. 482 PVR.
--- NOTE | 2024-06-01 04:57 | NUR ---
Calls to void. Stands up on side of bed. Voids 500 ML cloudy urine with sediment. Post void scan 126.
[2024-06-01 05:15] VITALS: BP 117/61
--- NOTE | 2024-06-01 06:28 | NUR ---
Patient has been cooperative with staff the rest of the shift.
--- NOTE | 2024-06-01 06:47 | NUR ---
Report to Wave RN
--- NOTE | 2024-06-01 09:01 | NUR ---
PT IS PLEASANT THIS MORNING HE REPORTS SLEEPING WELL. PT USED WALKER AND 2 PERSON ASSIST TO WALK TO THE CHAIR FOR BREAKFAST. PT PUT HIS OWN PILLS IN HIS MOUTH USING HIS RIGHT HAND TODAY. PT DENIES ANY FURTHER NEEDS AT THIS TIME.
--- NOTE | 2024-06-01 13:35 | NUR ---
1300 PCT HELPT PT TO USE THE RESTROOM. PT HAD A BM BUT DID NOT VOID. PT WAS BLADDER SCANNED. 500 MLS WERE FOUND WITH BLADDER SCANNER. THIS RN PERFORMED STRAIGHT CATH. 515MLS EMPTIED FROM BLADDER.
--- NOTE | 2024-06-01 16:49 | NUR ---
PTS URINE IS CLOUDY, WITH LARGE AMOUNTS OF SEDIMENT. PT HAS RECIEVED MULTIPLE URINE ANALYSIS AND URINE CULTURES. PT DENIES FLANK PAIN, NO BLOOD IN URINE. PT HAS PERIODIC EPISODES OF URINARY RETENTION. PT HAS A STANDING ORDER FOR A STRAIGHT CATH IF BLADDER SCAN RESULTS MORE THEN 400ML.
[2024-06-01 17:47] VITALS: BP 119/67
--- NOTE | 2024-06-01 20:00 | NUR ---
Report received from Angelia AYERS. Patient rests supine in bed. C-collar in place. A/O x4. Cooperative with staff. Denies pain. Assessment completed. Up to BR with 2:1 assist and walker. Able to void 300 ML of cloudy urine with sediment. Assisted back to bed. Drank Ensure. Denies wants or needs. Watching TV. Bed alarm on. Call light in reach.
--- NOTE | 2024-06-01 21:30 | NUR ---
Urge to void. Unable to. Bladder scan [address] Cath performed with 550 ML yellow, cloudy urine return. No sediment noted. Cooperative with [facility].
--- NOTE | 2024-06-02 04:07 | NUR ---
Attempts to void at side of bed, standing up with urinal. Unable. Assisted back to bed. Bladder scan 685. St. cath 650 ML cloudy yellow urine output. Tolerated well. Voices relief. Rests with bed alarm on, call light in reach.
[2024-06-02 05:36] VITALS: BP 165/56
--- NOTE | 2024-06-02 07:15 | NUR ---
Report to Gris AYERS.
--- NOTE | 2024-06-02 11:10 | NUR ---
Per pt , Terrie, neurology appt was changed to 06/07/24 @ 1200. Plan for daughter and Terrie to transport pt on that day.
--- NOTE | 2024-06-02 12:00 | NUR ---
Pt calls, reports feeling urge to urinate. Ambulates to BR, 1A with walker. Steps with LLE jerky and not well controlled. Pt unable to urinate. Bladder scan volume <400ml. Assist pt to recliner, lunch setup on BST. Pt denies further needs, call light in reach, chair brake locked, alarm activated.
--- NOTE | 2024-06-02 15:00 | NUR ---
Pt up to BR, reports urinary urge and urgency. 1A with walker to BR. Pt able to void ~100ml, PVR 383ml. Noted to have long strand of tissue/mucous expelled with urine. Notified provider, no new orders. Pt denies pain. Reports relief of urge states "but I can still tell my bladder has urine in it." Pt ambulates back to bed, call light in reach, bed alarm on.
[2024-06-02 17:47] VITALS: BP 125/60
--- NOTE | 2024-06-02 20:40 | NUR ---
Pt sits on EOB to use urinal. Reports having urge to urinate. The last bladder scan at 1930 showed 610ml urine. Pt able to void 270ml with PVR 407ml. Reports feeling relief. No straight cath at this time. Pt Ox3, denies pain. Takes pills whole with water. Is assisted to lie back in bed. SCD's on, bed alarm on, bed low/locked with call light within reach. Pt denies any other needs at this time.
--- NOTE | 2024-06-02 23:00 | NUR ---
Report received from Gris AYERS and care assumed at this time. Rests quietly with eyes closed. Bed alarm on. Call light in reach.
--- NOTE | 2024-06-02 23:45 | NUR ---
Calls with urge to void. Stands up beside bed with staff assist. Voids 350 ML Cloudy urine with mucus. Incontinent of large SF BM while standing to void. Alida/rectal cares provided. Assisted to bed. Bladder scan shows 582 ML left in bladder. St. Cath performed at this time, using sterile technique. Additional 420 MLs output obtained. Post cath bladder scan shows 162 ML residual. Cooperative with staff and tolerated well. While standing on side of bed for voiding and pericares, patient became weak and dizzy and required max assist to stand and then get to bed.
--- NOTE | 2024-06-03 04:08 | NUR ---
Urge to void. Stood up on side of bed. Voided 25 ML. Unable to void anymore. Bladder scan with [address] cath done, 700 ML of cloudy yellow urine return. Post bladder scan 21 Ml. Voices relief. Bed alarm on. Call light in reach.
[2024-06-03 05:47] VITALS: BP 99/59
--- NOTE | 2024-06-03 07:19 | NUR ---
Report to Natacha AYERS.
--- NOTE | 2024-06-03 07:32 | NUR ---
Report received from Sonam Pepe LPN and [facility]. Pt resting in bed with eyes closed and no signs of distress or discomfort noted at this time. Call light in reach and bed alarm on.
--- NOTE | 2024-06-03 11:10 | NUR ---
Pt up to bathroom after stating that he feels the need to void. Voided 400 mL. Assisted back to bed and bladder scan done. Per bladder scan, 345 mL urine present in bladder, and pt denies the sensation to urinate. Talked with pt about sitting on the commode longer to try to urinate a little more next time he is up to the bathroom. Pt verbalized understanding. Also talked with pt about relaxing more during urination to encourage more complete bladder emptying. Pt denies pain or needs at this time. Call light inr each, bed alarm on.
--- NOTE | 2024-06-03 13:39 | NUR ---
Pt up to bathroom and voided after feeling the urge to void. Didn't void into the hat, so unable to measure the quantity of urine in void. Post-void urine scan shows 502 mL urine. Straight catheterization done, and 400 mL urine from void. Pt tolerated well. Urine remains cloudy. Pt resting in bed with no additional needs at this time.
[2024-06-03 17:19] VITALS: BP 135/67
--- NOTE | 2024-06-03 19:35 | NUR ---
Report given and care transferred. Pt continues resting in bed, no needs at this time.
[2024-06-04 06:18] VITALS: BP 132/68
--- NOTE | 2024-06-04 09:50 | NUR ---
PT IS SITTING UP IN CHAIR, PT ATE BREAKFAST. RN ADMINISTERED MEDICATIONS. PT DENIES ANY FURTHER NEEDS AT THIS TIME.
[2024-06-04 17:08] VITALS: BP 138/75
--- NOTE | 2024-06-04 19:22 | NUR ---
Report received from Chandler AYERS. Patient resting supine in bed watching TV. A/O x4. Soft collar neck brace in place. Denies pain. Assessment completed. SCD's on BLE. Cooperative with cares. Bed alarm on. Call light in reach.
--- NOTE | 2024-06-05 04:34 | NUR ---
Has been resting quietly all shift. Awakens with urge to void. Assist up with 2 staff assist. Unable to void at this time. Bladder scan shows 752 ML of urine in bladder. St. Cath performed with 14 fr red anaid cath via sterile technique. 775 ML of cloudy urine output. Patient tolerated well. Post cath scan 0 ML noted. VS obtained. Denies pain. Denies wants or needs. Bed alarm on. Call light in reach.
[2024-06-05 05:38] VITALS: BP 124/60
--- NOTE | 2024-06-05 07:00 | NUR ---
Report to Chandler AYERS.
--- NOTE | 2024-06-05 09:45 | NUR ---
PT IS SITTIGN UP IN RECLINER, PT IS ATE 50% OF HIS BEAKFAST. PT HAS BEEN BLADDER SCANNED IN THE 0800 HOUR. 350 MLS. CALL LIGHT IS WITHIN REACH, PT DENIES ANY OTHER NEEDS.
[2024-06-05 17:15] VITALS: BP 115/68
--- NOTE | 2024-06-05 19:19 | NUR ---
Report received from Chandler AYERS. Patient rests supine in bed. A/O x4. Denies pain. States had a good day today, visited. Assessment completed. Cooperative at this time. Ensure supplement provided. Denies wants or needs. Bed alarm on. Call light in reach.
--- NOTE | 2024-06-06 00:59 | NUR ---
Calls with urge to void. Assisted up to side of bed. Unable to void. Bladder scan [address] Cath 800 ML cloudy output. Reports relief. Tolerated well. Bed alarm on. Call light in reach.
[2024-06-06 06:02] VITALS: BP 134/71
--- NOTE | 2024-06-06 06:58 | NUR ---
Report to Gianna AYERS.
--- NOTE | 2024-06-06 15:03 | NUR ---
PATIENT PLEASENT AND COOPERATIVE WITH MORNING CARE. AFTER BREAKFAST PATIENT QUICKLY ASKED TO GO BACK TO BED. THIS NURSE LAST TOOK CARE OF THIS PATIENT LAST WEEK, AND IT IS NOTICABLE THAT HE IS NOT STEADY AMBULATING BEFORE AND APPEARS MORE TIRED. HE HAD DIFFICULTY STANDING UPRIGHT EVEN FOR A SHORT AMOUNT OF TIME. HIS LEGS BEGAN TO SHAKE AND HE HAD TO SIT BACK DOWN. HE STATES THAT DURING THE NIGHT HE WAS HAVING LEG CRAMPS IN HIS LEFT LEG, SO HE DIDN'T GET MUCH SLEEP. SINCE PATIENT HAS BEEN HAVING INCREASED DIFFICULTY VOIDING AND HAS HAD TO BE CATHED, AN ORDER FOR INDWELLING LERMA WAS PLACED DUE TO INCREASED INTERMITTEN CATH FOR URINE RETENSION. AFTER LERMA WAS PLACED HE HAD YELLOW URINE WHICH THEN CHANGED TO A THICK, WHITE SEDIMENT. THE TUBING HAD TO BE STRIPPED AND THEN IRRIGATED. PATIENT STATES THAT HE FEELS MORE COMFORTABLE. PATIENT RETURNED FROM THERAPY. HE IS CERRENTLY SITTING IN HIS RECLINER WITH FEET ELEVATED. STAFF WILL CONTINUE TO MONITOR.
--- NOTE | 2024-06-06 15:26 | NUR ---
faxed clinicals to [facility],
[2024-06-06 17:17] VITALS: BP 120/71
[2024-06-07 06:27] VITALS: BP 114/64
[2024-06-07 06:50] LABS: BASO # 0.02 K/mm3 (0.02-0.10); EOS # 0.22 K/mm3 (0.04-0.40); HEMATOCRIT 35.9 % (42.0-52.0); HEMOGLOBIN 11.7 g/dL (13.5-18.0); LYMPH# 1.71 K/mm3 (1.50-4.00); MEAN CELL VOLUME 94 fl (78-100); MEAN CORPUSCULAR HEMOGLOBIN 31 pg (27-31); MEAN CORPUSCULAR HGB CONC 33 g/dL (33-37); MEAN PLATELET VOLUME 10.7 fl (7.4-10.4); MONO # 0.53 K/mm3 (0.20-0.80); NEU # 2.97 K/mm3 (1.40-6.50); PLATELET COUNT 217 K/mm3 (130-400); RED BLOOD COUNT 3.82 M/mm3 (4.20-5.60); RED CELL DISTRIBUTION WIDTH 13.2 % (11.5-14.5); WHITE BLOOD COUNT 5.5 K/mm3 (4.8-10.8)
--- NOTE | 2024-06-07 10:20 | NUR ---
PT ASSISTED INTO POV FOR APPOINTMENT IN [place] WITH NEUROLOGY. PT IS BEING TAKEN BY AND [facility]AND[facility]. WHEELCHAIR AND WALKER WITH GAIT BELT SENT WITH PATIENT.
--- NOTE | 2024-06-07 17:09 | NUR ---
PT RETURNED AT 1415 FROM APPOINTMENT. PT GIVEN PERMISSION TO DISCONTINUE CERVICAL COLLAR. PT HAS A 10LB LIFTING RESTRICTION AND SHOULD AVOID BENDING AND TWISTING HIS NECK. PT HAS A RETURN VISIT SCHEDULED FOR 07/14/24 @ 1100.
[2024-06-07 17:21] VITALS: BP 115/66
[2024-06-07] MEDS ORDERED: QUEtiapine 25 MG TAB PO SCH (21:00)
[2024-06-07] MEDS ORDERED: Cyclobenzaprine 10 MG TAB PO SCH (21:00)
[2024-06-07] MEDS ORDERED: Donepezil 5 MG TAB PO SCH (21:00)
[2024-06-08 05:11] VITALS: BP 126/62
--- NOTE | 2024-06-08 09:31 | NUR ---
Sent clinicals to [facility]. Waiting response from [facility] in [place]. Not able to find [facility]. Website says permantly closed.
--- NOTE | 2024-06-08 09:39 | NUR ---
PT ALERT AND ORIENTED THIS MORNING. PT DENIES PAIN. CONTINUES TO HAVE LIMITED USE OF LEFT ARM/HAND. LERMA DRAINING APPROPRIATELY. DOES HAVE SOME INCONTINENCE OF BOWEL.
--- NOTE | 2024-06-08 15:04 | NUR ---
Spoke with Terrie on the phone today. She is anxious about Zhen plan for further care upon insurance discharging him next week. She feels he could benefit from more time with therapy. I explained that [facility] would [facility]. Gave the name of visitor services representative person Cassie Schafer [phone]. She stated she would have delinquency prevention social worker Cassie Wei contact Terrie. per this cm EMail message from Cassie Schreiber. Terrie states she has been contacted by [facility] but no one from the [place] has contaced her. [facility] will deny. Referrals sent to [facility] in [place]. [place] and [place]. Awaiting response. Terrie states that she also will contact [place] family to assist with the ramp to get in her home. Terrie states she has help/support from her daughters.
[2024-06-08 18:00] VITALS: BP 148/55
--- NOTE | 2024-06-08 18:40 | NUR ---
REPORT GIVEN TO ANDRIA GERARDO.
[2024-06-09 05:30] VITALS: BP 120/64
--- NOTE | 2024-06-09 09:33 | NUR ---
0650 RECIEVED REPORT FROM ANDRIA HERNANDEZ 08 PT IS AWAKE, DRESSED AND EATING BREAKFAST. RN EMTIED LERMA BAG 300ML. COLOR IS YELLOW WITH MUCUS AND SEDIMENT. 0856 RN ADMINISTERED DAILY MEIDCATIONS, RN ASSESED PTS PAIN LEVEL. PT DENIES PAIN AT THIS TIME. RN ASSISTED PT WITH FILLING OUT HIS DAILY MENU. PTS CHAIR ALARM IS ON, CALL LIGHT IS WITHIN REACH, PT IS WATCHING TV AND DENIES ANY NEEDS AT THIS TIME.
--- NOTE | 2024-06-09 17:00 | NUR ---
Report received from Chandler AYERS. Patient sitting up in recliner with visitor room. Supper provided at this time. A/O x4. Denies pain. Assessment completed. Mon cath patent to DD with cloudy yellow urine, sediment noted. Slotching in recliner, repositioned. Denies wants or needs. Chair alarm on, call light in reach.
--- NOTE | 2024-06-09 17:12 | NUR ---
PT HAS A LERMA AND IT NEEDS TO BE FLUSHED PREIODICALLY. OUTPUT HAS BEEN 300ML EVERY 3-4 HOURS. PT IS IN HIS ROOM WITH ALARMS ON. PT HAD HIS AND DUAGHTER VISIT TODAY. HE HAS BEEN POLITE AND COOPERATIVE TODAY. REPORT GIVEN TO SEBASTIÁN AYERS
[2024-06-09 17:17] VITALS: BP 99/87
--- NOTE | 2024-06-10 00:48 | NUR ---
Patient has been resting quietly with eyes closed. Mon to DD drainage. No signs of pain or distress. SCD's in place to BLE. Bed alarm respiratory practitioner light in reach.
--- NOTE | 2024-06-10 05:47 | NUR ---
Patient rested well all night. No verbalization of pain or restless legs. Mon draining yellow urine with thick sediment.
[2024-06-10 06:08] VITALS: BP 105/65
--- NOTE | 2024-06-10 06:44 | NUR ---
Report to Joshua AYERS.
--- NOTE | 2024-06-10 08:25 | NUR ---
ASSISTED PT TO CHAIR FOR BREAKFAST. SCD'S ON WHILE PT WAS IN BED. PT STATED THAT HE DREAMED ALOT LAST NIGHT SO THAT MUST MEAN HE SLEPT GOOD. MEDICATION TAKEN PO WITHOUT DIFFICULTY. ASSESMENT COMPLETE. NO OTHER WANTS AT THIS TIME. CALL LIGHT WITHIN REACH, CHAIR ALARM ON.
[2024-06-10 16:33] VITALS: BP 114/72
--- NOTE | 2024-06-10 19:13 | NUR ---
Report received from Joshua AYERS. Patient sitting up in recliner, ready to go to bed. Assisted to bed via 2:1 staff. Gait awkward and unsteady. Oriented x2. Denies pain. Assessment completed. Mon patent, draining thick yellow cloudy urine with sediment. Positioned for comfort. [place] ensure provided. Bed alarm on, call light in reach.
[2024-06-11 05:49] VITALS: BP 115/67
--- NOTE | 2024-06-11 06:49 | NUR ---
Report to Khushbu AYERS
--- NOTE | 2024-06-11 07:30 | NUR ---
PT SITTING UP IN CHAIR. PT IS ALERT AND ORIENTED. DENIES ANY PAIN. LERMA DRAINING APPROPRIATELY BUT DOES STILL HAVE SOME SEDIMENT. CALL LIGHT WITHIN REACH AND CHAIR ALARM ON.
[2024-06-11 17:40] VITALS: BP 112/64
--- NOTE | 2024-06-11 18:52 | NUR ---
REPORT GIVEN TO ANDRIA GERARDO.
[2024-06-12 05:36] VITALS: BP 121/65
--- NOTE | 2024-06-12 07:00 | NUR ---
RESUMED CARE FROM ANDRIA GERARDO.
--- NOTE | 2024-06-12 09:00 | NUR ---
PATIENT SITTING IN RECLINER UPON ARRIVAL TO ROOM. PATIENT DENIES ANY CURRENT PAIN. ASSESSMENT COMPLETED. AM MEDICATIONS PROVIDED. LERMA IN PLACE, LINA URINE NOTED IN BAG. URINE WITH SEDIMENT AND MALODOROUS. LLE BRACE IN PLACE. PATIETN A&OX4 AND PLEASANT. DENIES ANY NEEDS AT THIS TIME. PATIENT REMAINS IN RECLINER, CHAIR ALARMED, CALL LIGHT WITHIN REACH.
[2024-06-12 17:19] VITALS: BP 115/69
--- NOTE | 2024-06-12 18:27 | NUR ---
LERMA TUBING IRRIGATION COMPLETED AND LERMA BAG REPLACEMENT AT THIS TIME. PRIOR TO REPLACEMENT PATIENT HAD 175ML OF LINA URINE WITH COPIOUS AMOUNT OF SEDIMENT NOTED WITHIN LERMA TUBING AND BAG. CLEAR YELLOW URINE NOTED AFTER LERMA BAG CHANGE. SECUREMENT DEVICE REPLACED TUBING WAS RUBBING AND IRRITATING PATIENTS LEG. LERMA WAS PLACED ON 06/06 BY ANDRIA AKBAR. PATIENT REMAINS IN BED WITH BED ALARMED, CALL LIGHT WITHIN REACH.
--- NOTE | 2024-06-12 18:51 | NUR ---
REPORT TO ANDRIA GERARDO.
[2024-06-13 05:35] VITALS: BP 113/62
--- NOTE | 2024-06-13 08:30 | NUR ---
PT REPORTED FEELING LIKE HE HAD TO CONSTANTLY URINATE DURING THE NIGHT. BLADDER SCAN SHOWED 350ML IN BLADDER. UNSUCCESSFUL ATTEMPTS TO IRRIGATGE BLADDER. PROVIDER NOTIFIED. LERMA REMOVED AND NEW ONE PLACE. TIP OF THE OLD LERMA CLOGGED WITH SENTIMENT. 450ML OUT ONCE NEW LERMA IN PLACE. PT HANDLED PROCEDURE WELL. PT BACK TO CHAIR TO FINISH BREAKFAST. ASSESMENT COMPLETE. MEDICATION TAKEN PO. NO OTHER WANTS OR NEEDS AT THIS TIME. CHAIR ALARM ON, CALL LIGHT WITHIN REACH.
--- NOTE | 2024-06-13 10:07 | NUR ---
[facility] is full and unable to accept Zhen at this time. They would like to be updated on his discharge and contacts.
[2024-06-13 14:30] VITALS: BP 113/68
[2024-06-13 17:06] VITALS: BP 105/54
[2024-06-14 05:43] LABS: BASO # 0.02 K/mm3 (0.02-0.10); EOS # 0.14 K/mm3 (0.04-0.40); EOS % 2.5 % (0.0-4.0); HEMATOCRIT 38.3 % (42.0-52.0); HEMOGLOBIN 12.3 g/dL (13.5-18.0); LYMPH# 1.92 K/mm3 (1.50-4.00); MEAN CELL VOLUME 96 fl (78-100); MEAN CORPUSCULAR HEMOGLOBIN 31 pg (27-31); MEAN CORPUSCULAR HGB CONC 32 g/dL (33-37); MEAN PLATELET VOLUME 10.2 fl (7.4-10.4); MONO # 0.46 K/mm3 (0.20-0.80); NEU # 3.01 K/mm3 (1.40-6.50); PLATELET COUNT 266 K/mm3 (130-400); RED BLOOD COUNT 4.01 M/mm3 (4.20-5.60); RED CELL DISTRIBUTION WIDTH 13.1 % (11.5-14.5); WHITE BLOOD COUNT 5.6 K/mm3 (4.8-10.8)
[2024-06-14 05:56] LABS: ALBUMIN 3.1 g/dL (3.4-4.8)
[2024-06-14 05:58] LABS: CALCIUM 8.9 mg/dL (8.3-10.5)
[2024-06-14 05:59] LABS: TOTAL PROTEIN 6.2 g/dL (6.2-8.1)
[2024-06-14 06:01] LABS: TOTAL BILIRUBIN 0.2 mg/dL (0.2-1.2)
[2024-06-14 06:40] VITALS: BP 104/54
--- NOTE | 2024-06-14 14:55 | NUR ---
Spoke with Terrie today about having someone from the family come to learn of Henry needs and care. This is to prepare for discharge. Terrie to contact [facility] in [place] for equipment needed such as adjustable hospital bed to keep spine from twisting or turning. Front wheeled walker, wheelchair, bath chair. Terrie states she thinks the basement would be a better option for Zhen to enter the home. PT OT think that a home visit prior to discharge might be an option. Need Home Health option for Zhen.
[2024-06-14 17:43] VITALS: BP 124/65
--- NOTE | 2024-06-14 20:50 | NUR ---
Report received from Brenda AYERS. Patient resting supine in bed with eyes closed. Awakens easily with verbal stimuli. Oriented to self, and place and able to look to white board for date/year. Denies pain. Assessment completed. Mon cath patent to with cloudy, yellow urine in bag. Takes HS medications all at once whole without difficulty. Refused SCD's. Denies wants or needs. Pleasant and cooperative with this nurse. Bed alarm on, call light in reach.
[2024-06-15 06:10] VITALS: BP 111/59
--- NOTE | 2024-06-15 06:11 | NUR ---
Rested well through the night. No verbalization of pain. Mon patent to DD without problems. Cooperative with cares.
--- NOTE | 2024-06-15 07:00 | NUR ---
RESUMED CARE FROM STEVIE LOWERY.
--- NOTE | 2024-06-15 07:10 | NUR ---
Report to Khushbu Leong RN.
--- NOTE | 2024-06-15 09:00 | NUR ---
PATIENT SITTING IN RECLINER UPON ARRIVAL TO ROOM. DENIES PAIN. REPORTS HE IS HAPPY THAT HE IS ABLE TO MOVE LEFT WRIST WITHOUT USING HIS OTHER HANDS, GRATEFUL FOR HIS IMPROVEMENTS. PATIENT UPSET REGARDING BREAKFAST, STATING IT GOT COLD AND HE NEEDED HELP TO EAT. PATIENT DID NOT CALL TO ASK FOR ASSISTANCE WITH EATING. EASILY REDIRECTABLE, THIS RN OFFERED PEANUT BUTTER AND JELLY SANDWICH. PATIENT CURRENTY EATING SANDWICH INDEPENDENTLY. ASSESSMENT COMPLETED. AM MEDICATION ADMINISTERED WITHOUT ISSUE. URINE YELLOW CLEAR, SEDIMENT NOTED IN LERMA BAG. PATIENT REMAINS IN RECLINER, CHAIR ALARMED, CALL LIGHT WITHIN REACH.
--- NOTE | 2024-06-15 11:04 | NUR ---
LEG BAG APPLIED PER THERAPY REQUEST.
[2024-06-15 17:48] VITALS: BP 125/67
--- NOTE | 2024-06-15 18:56 | NUR ---
REPORT TO ANDRIA HURTADO.
--- NOTE | 2024-06-15 20:00 | NUR ---
Patient resting in bed awake. Denies pain at this time. HS meds reviewed and given. Alert and oriented. Pleasant.
--- NOTE | 2024-06-16 05:24 | NUR ---
Patient reports he slept well this noc.
[2024-06-16 05:45] VITALS: BP 111/61
[2024-06-16 17:32] VITALS: BP 122/62
--- NOTE | 2024-06-16 18:44 | NUR ---
REPORT GIVEN TO STEVIE LOWERY
--- NOTE | 2024-06-16 19:48 | NUR ---
Report received from Khushbu AYERS. Patient resting in bed watching football game. A/O x4. Denies pain. Assessment completed. Mon patent to DD with yellow, cloudy urine. HS medications taken whole without difficulty. Ensure provided and drank 100%. Denies wants or needs. Bed alarm on. Call light in reach.
--- NOTE | 2024-06-17 01:00 | NUR ---
Patient rings and feels as if he has to pee. Minimal urine in turpin cath bag. Catheter irrigated with 60 ML of sterile water x2. Flushed easily with no resistence met. Cloudy yellow urine return noted with 350 currently in catheter bag. Patient reports relief .
[2024-06-17 06:15] VITALS: BP 116/63
--- NOTE | 2024-06-17 07:00 | NUR ---
RESUMED CARE FROM STEVIE LOWERY.
--- NOTE | 2024-06-17 07:02 | NUR ---
Report to Khushbu AYERS.
--- NOTE | 2024-06-17 08:50 | NUR ---
PATIENT SITTING IN RECLINER UPON ARRIVAL TO ROOM. ALERT AND ORIENTED, PLEASANT. DENIES ANY CURRENT PAIN. ASSESSMENT COMPLETED. AM MEDIATIONS ADMINITERED BY STEVIE SAMPSON WITH THIS RN. LERMA IN PLACE, YELLOW URINE WITH COPIOUS AMOUNTS OF SEDIMENT NOTED IN LERMA BAG. AWAITING ARRIVAL OF FAMILY FOR EDUCATION ON LEG BAG APPLICATION. DENIES ANY FURTHER NEEDS. REMAINS IN RECLINER WITH CHAIR ALARMED, CALL LIGHT WITHIN REACH.
--- NOTE | 2024-06-17 15:00 | NUR ---
PATIENT COMPLAINS OF BLADDER FULLNESS. PCT CRYSTAL PERFORMED BLADDER SCAN, 340ML NOTED. THIS RN IRRIGATED LERMA, COPIOUS AMOUNT OF SEDIMENT THROUGH LERMA. >500ML IN LERMA BAG AFTER IRRIGATION. PATIENT REPORTS RELIEF OF SYMPTOMS.
[2024-06-17 18:11] VITALS: BP 100/61
--- NOTE | 2024-06-17 18:30 | NUR ---
REPORT TO STEVIE LOWERY.
--- NOTE | 2024-06-17 19:10 | NUR ---
Report received from Khushbu AYERS. Patient resting supine in bed watching TV, and drinking ensure. A/O x4. Denies pain. Assessment completed. Mon patent to DD, cloudy with thick sediment. Irrigation PRN. Denies wants or needs at this time. Bed alarm on. Call light in reach.
[2024-06-18 06:23] VITALS: BP 106/66
--- NOTE | 2024-06-18 06:26 | NUR ---
Rested well during the night. No urine retention noted or need to irrigate turpin cath this shift.
--- NOTE | 2024-06-18 06:53 | NUR ---
Report to Khushbu AYERS
--- NOTE | 2024-06-18 06:58 | NUR ---
RESUMED CARE FROM STEVIE LOWERY.
[2024-06-18 18:08] VITALS: BP 119/69
--- NOTE | 2024-06-18 18:30 | NUR ---
PATIENT PLEASANT THROUGHOUT THE DAY. IN WITH PATIENT THIS EVENING. NO COMPLAINTS OF PAIN. SHOWER THIS AM.
--- NOTE | 2024-06-18 18:52 | NUR ---
REPORT TO ANDRIA GERARDO.
--- NOTE | 2024-06-19 03:09 | NUR ---
LERMA CATH HAND IRRIGATION WAS ATTEMPTED BY THIS RN, IRRIGATION WAS UNSUCCESSFUL, THIS RN TRIED MULTIPLE TIMES BUT IT STILL FAILED, THIS RN PROCEEDED TO CHANGE LERMA CATH FOR A 16F LERMA CATH WITH A BALLOWN FILLED WITH 10ML. PT TOLERATED PROCEDURE, PT STATED FEELING RELIEF A LARGE AMOUNT OF URINE DRAINED. PT LEFT IN BED AT LOWEST POSITION ALARMED, W CALL LIGHT IN REACH.
--- NOTE | 2024-06-19 03:57 | NUR ---
GRAVITY FLOW IRRIGATOR NOTED PTS BOTOM REDDEDND, W/O OPEN AREAS, BARRIER CREAM APLIED, PT REPOSITIONED.
[2024-06-19 06:16] VITALS: BP 159/76
--- NOTE | 2024-06-19 08:30 | NUR ---
UPON ENTERING ROOM, PT IN CHAIR FOR BREAKFAST. PER HIGHWAY MAINTAINER, LERMA HAD TO BE REPLACED DUE TO BEING CLOGGED. LERMA DRAINING YELLOW URINE WITH MODERATE AMOUNTS OF SENTIMENT NOTED. MEDICATION TAKEN PO. ASSESMENT COMPLETE. NO PAIN. PT TO REMAIN IN CHAIR AND FINISH BREAKFAST. CALL LIGHT WITHIN REACH, CHAIR ALARM ON.
[2024-06-19 16:56] VITALS: BP 136/75
[2024-06-20 05:50] VITALS: BP 126/68
--- NOTE | 2024-06-20 17:16 | NUR ---
PATIENT ALERT AND ORIENTED X4. HE HAS BEEN PLEASENT AND COOPERATIVE WITH CARE. THIS SHIFT HE WENT HOME WITH HIS AND THERAPY SO HIS HOME COULD BE EVALUATED PRIOR TO DISCHARGE. THERAPY GAVE HIM AND HIS SUGGESTIONS ON WHAT WOULD MAKE IT EASIER FOR HIM TO MOVE AROUND IN HIS HOME. PATIENT WAS VERY HAPPY THAT HE WAS ABLE TO GO HOME FOR A COUPLE HOURS, BE OUTSIDE AND SEE HIS DOG. HE IS VERY MUCH LOOKING FORWARD TO BEING DISCHARGED. HAMILTON GARRISON, AND ABELARDO MADE DECISION THAT PATIENT WILL NOT CHANGE FROM LEG BAG TO A DEPENDENT DRAINAGE BAG DUE TO AN INCREASED RISK OF INFECTION. PATIENT WILL CONTINUE WITH ONLY THE DEPENDENT BAG. WHEN PHARMACY IS ABLE TO GET THE 0.25% ACETIC SOLUTION, STAFF WILL START TO IRRIGATE WITH THIS SOLUTION TO HELP BREAKDOWN SEDIMENT IN BLADDER.
[2024-06-20 18:00] VITALS: BP 100/60
[2024-06-21 05:43] VITALS: BP 121/68
[2024-06-21 06:08] LABS: BASO # 0.02 K/mm3 (0.02-0.10); EOS # 0.13 K/mm3 (0.04-0.40); EOS % 2.7 % (0.0-4.0); HEMATOCRIT 36.1 % (42.0-52.0); HEMOGLOBIN 11.9 g/dL (13.5-18.0); LYMPH# 2.06 K/mm3 (1.50-4.00); MEAN CELL VOLUME 93 fl (78-100); MEAN CORPUSCULAR HEMOGLOBIN 31 pg (27-31); MEAN CORPUSCULAR HGB CONC 33 g/dL (33-37); MEAN PLATELET VOLUME 10.8 fl (7.4-10.4); MONO # 0.43 K/mm3 (0.20-0.80); NEU # 2.11 K/mm3 (1.40-6.50); PLATELET COUNT 247 K/mm3 (130-400); RED CELL DISTRIBUTION WIDTH 13.3 % (11.5-14.5); WHITE BLOOD COUNT 4.8 K/mm3 (4.8-10.8)
[2024-06-21 06:22] LABS: CALCIUM 8.9 mg/dL (8.3-10.5)
[2024-06-21 06:24] LABS: TOTAL PROTEIN 5.9 g/dL (6.2-8.1)
[2024-06-21 06:25] LABS: TOTAL BILIRUBIN 0.3 mg/dL (0.2-1.2)
--- NOTE | 2024-06-21 07:00 | NUR ---
RESUMED CARE FROM ANDRIA GERARDO.
--- NOTE | 2024-06-21 17:13 | NUR ---
THIS RN BROUGHT MEAL INTO PATIENT ROOM. UPON ATTEMPT OF PATIENT TRANSFER FROM BED TO RECLINER, PATIENT BECAME INCREASINGLY MORE AGGITATED WITH THE USE OF ASSISTIVE DEIVCES AND FALL PRECAUTIONS. EDUCATION PROVIDED ON NEED FOR ALL FALL PRECAUTIONS TO BE UTILIZED, PATIENT CONTINUED TO BECOME AGGITATED. PATIENT AGREED TO REMAIN IN BED TO EAT DINNER HE WAS UNWILLING TO ALLOW THIS NURSE TO PLACE ON SHOES AND UTILIZE GAIT BELT AND WALKER TO PIVOT TRANSFER AND AMBULATE TO RECLINER. PATIENT SITTING IN BED EATING DINNER UPON DEPARTURE FROM ROOM WITH CALL LIGHT WITHIN REACH AND BED ALARMED.
[2024-06-21 17:41] VITALS: BP 125/60
--- NOTE | 2024-06-21 18:44 | NUR ---
REPORT TO STEVIE LOWERY.
--- NOTE | 2024-06-21 19:02 | NUR ---
Report receieved from Khushbu AYERS. Patient laying supine in bed watching TV. A/O to self and place, unable to give date but knows to look on board for answer. Denies pain. Assessment completed. Mon patent to DD with yellow, cloudy, sediment urine in bag. Vanilla ensure provided. Denies wants or needs. Bed alarm on. Call light in reach.
[2024-06-22 05:41] VITALS: BP 105/63
--- NOTE | 2024-06-22 06:55 | NUR ---
Report to Khushbu AYERS.
[2024-06-22] MEDS ORDERED: ACETIC ACID 0.25% SCH (10:00)
[2024-06-22] MEDS ORDERED: PETROLATUM TP PRN (16:45)
[2024-06-22 17:11] VITALS: BP 123/72
--- NOTE | 2024-06-22 18:38 | NUR ---
REPORT TO STEVIE LOWERY.
--- NOTE | 2024-06-22 19:15 | NUR ---
Report received from Khushbu AYERS. Patient rests supine in bed watching TV. A/O x4. Denies pain. States having some "soreness" from PT today but not pain. Assessment completed. Mon cath to DD with pale yellow cloudy urine in bag. Chocolate ensure provided per order. Bed alarm on, call light in reach.
[2024-06-23 05:09] VITALS: BP 106/62
--- NOTE | 2024-06-23 06:17 | NUR ---
Rested well all night. Denies pain. Yaa patent to MITCHELL.
--- NOTE | 2024-06-23 06:50 | NUR ---
Report to Khushbu AYERS
--- NOTE | 2024-06-23 09:37 | NUR ---
PT IS ALERT AND ORIENTED. DENIES PAIN. SITTING UP IN RECLINER, ABLE TO REPOSITION SELF. URINE IS YELLOW WITH SEDIMENT, CATHETER WAS IRRIGATED WITH ACETIC ACID. UNABLE TO USE LEFT HAND, IT IS IN BRACE CURRENTLY. POSSIBLE DISCHARGE HOME TODAY IF HOSPITAL BED HAS BEEN DELIVERED.
[2024-06-23] MEDS ORDERED: ARICEPT10 M1 PO (15:56)
[2024-06-23] MEDS ORDERED: FLOMAX0.4 MG PO (15:56)
[2024-06-23] MEDS ORDERED: CYCLOBENZ5 MG PO (15:57)
[2024-06-23] MEDS ORDERED: OMEGA 3 1,0001 EACH PO (15:57)
[2024-06-23] MEDS ORDERED: NEURONTIN400 M1 PO (15:58)
[2024-06-23] MEDS ORDERED: DESYREL50 MG PO (15:58)
[2024-06-23] MEDS ORDERED: QUETIAPINE FUMA25 M3 PO (15:59)
[2024-06-23] MEDS ORDERED: PROZAC20 M1 PO (15:59)
[2024-06-23] MEDS ORDERED: POLYETHYLE17 GM/Dose PO (16:00)
[2024-06-23] MEDS ORDERED: REFRESH CELLUVI1 SOL OP (16:00)
[2024-06-23] MEDS ORDERED: ACETIC ACID 0.25% (16:02)
--- NOTE | 2024-06-23 17:40 | NUR ---
Pt and family educated on discharge plan, medications, and turpin care. All questions answered at this time. Supplies for turpin care at home given to family. F/u appointments made except urology. Gave urology contact to call and schedule on own. Advised pt and family to call if any further concerns should arise. Pt wheeled out and assisted into private family vehicle by staff.
== END 2024-06-23 17:30 | disposition home health service (06) | DRG 949 ==
LOC: MED/SURG 17:28
PROVIDERS: Family Medicine; ADMIT Family Medicine
DX: S14.129D Central cord syndrome at unspecified level of cervical spinal cord, subsequent encounter (principal); E87.1 Hypo-osmolality and hyponatremia; N40.0 Benign prostatic hyperplasia without lower urinary tract symptoms; D64.9 Anemia, unspecified; R00.1 Bradycardia, unspecified; R53.81 Other malaise; F32.A Depression, unspecified; G47.00 Insomnia, unspecified; H91.90 Unspecified hearing loss, unspecified ear; Z87.891 Personal history of nicotine dependence
CPT/HCPCS: A4314; G0283-GP; J1650

== ENCOUNTER 2024-08-18 14:39 | Emergency (ER) | payer MEDICARE ==
[~2024-08-18] VITALS: Ht 172.7 cm; Wt 68.5 kg
[~2024-08-18 14:39] MED LIST changes: +ACETIC ACID 0.25%; +ARICEPT10 M1 PO; +CYCLOBENZ5 MG PO; +DESYREL50 MG PO; +FLOMAX0.4 MG PO; +NEURONTIN400 M1 PO; +OMEGA 3 1,0001 EACH PO; +POLYETHYLE17 GM/Dose PO; +PROZAC20 M1 PO; +QUETIAPINE FUMA25 M3 PO; +REFRESH CELLUVI1 SOL OP
[2024-08-18] MEDS ORDERED: ELIQUIS5 MG PO (17:11)
[2024-08-18 17:32] LABS: D-DIMER 2.35 mg/L FEU (0.15-0.50)
[2024-08-18 17:35] LABS: ALBUMIN 3.4 g/dL (3.4-4.8); ALT/SGPT 15 U/L (0-55); AST-SGOT 14 U/L (5-34); BASO # 0.02 K/mm3 (0.02-0.10); CALCIUM 8.8 mg/dL (8.3-10.5); CARBON DIOXIDE 23 mmol/L (23-31); EOS # 0.15 K/mm3 (0.04-0.40); EOS % 2.2 % (0.0-4.0); GLUCOSE 95 mg/dL (75-110); HEMATOCRIT 39.7 % (42.0-52.0); HEMOGLOBIN 13.1 g/dL (13.5-18.0); LYMPH# 2.24 K/mm3 (1.50-4.00); MEAN CELL VOLUME 91 fl (78-100); MEAN CORPUSCULAR HEMOGLOBIN 30 pg (27-31); MEAN CORPUSCULAR HGB CONC 33 g/dL (33-37); MEAN PLATELET VOLUME 10.7 fl (7.4-10.4); MONO # 0.52 K/mm3 (0.20-0.80); NEU # 3.73 K/mm3 (1.40-6.50); PLATELET COUNT 206 K/mm3 (130-400); RED BLOOD COUNT 4.38 M/mm3 (4.20-5.60); RED CELL DISTRIBUTION WIDTH 14.4 % (11.5-14.5); SODIUM 140 mmol/L (136-145); TOTAL BILIRUBIN 0.3 mg/dL (0.2-1.2); TOTAL PROTEIN 6.5 g/dL (6.2-8.1); TROPONIN-I < 0.030 ng/mL (0.00-0.033); WHITE BLOOD COUNT 6.7 K/mm3 (4.8-10.8)
[2024-08-18 17:46] VITALS: BP 117/69
== END 2024-08-18 18:03 | disposition home or self-care (01) ==
LOC: ED 14:39
PROVIDERS: Family Medicine
DX: I95.1 Orthostatic hypotension (principal); R79.1 Abnormal coagulation profile; Z79.01 Long term (current) use of anticoagulants; Z86.73 Personal history of transient ischemic attack (TIA), and cerebral infarction without residual deficits; Z96.0 Presence of urogenital implants; Z86.69 Personal history of other diseases of the nervous system and sense organs
CPT/HCPCS: J7120

== ENCOUNTER → 2024-09-22 | Outpatient (CLI) | payer MEDICARE ==
[~2024-09-22] MED LIST changes: +ELIQUIS5 MG PO
[2024-09-22 16:12] LABS: BASO # 0.03 K/mm3 (0.02-0.10); EOS # 0.13 K/mm3 (0.04-0.40); EOS % 2.1 % (0.0-4.0); HEMATOCRIT 39.4 % (42.0-52.0); LYMPH# 2.37 K/mm3 (1.50-4.00); MEAN CELL VOLUME 90 fl (78-100); MEAN CORPUSCULAR HEMOGLOBIN 30 pg (27-31); MEAN CORPUSCULAR HGB CONC 33 g/dL (33-37); MEAN PLATELET VOLUME 10.3 fl (7.4-10.4); MONO # 0.45 K/mm3 (0.20-0.80); NEU # 3.06 K/mm3 (1.40-6.50); PLATELET COUNT 231 K/mm3 (130-400); RED BLOOD COUNT 4.39 M/mm3 (4.20-5.60); RED CELL DISTRIBUTION WIDTH 14.3 % (11.5-14.5); WHITE BLOOD COUNT 6.1 K/mm3 (4.8-10.8)
[2024-09-22 16:20] LABS: ALBUMIN 3.6 g/dL (3.4-4.8)
[2024-09-22 16:21] LABS: CALCIUM 9.1 mg/dL (8.3-10.5)
[2024-09-22 16:22] LABS: TOTAL PROTEIN 6.9 g/dL (6.2-8.1)
[2024-09-22 16:24] LABS: TOTAL BILIRUBIN 0.2 mg/dL (0.2-1.2)
== END ==
LOC: LAB 15:57
PROVIDERS: Family Medicine
DX: Z01.818 Encounter for other preprocedural examination (principal)